=== PATIENT | female | born 1945 | race Caucasian/White ===

== ENCOUNTER → 2016-09-14 | Outpatient (CLI) | payer MEDICARE ==
[2015-03-09 08:35] VITALS: BP 123/68
[~2016-09-14] MED LIST: ASPI81TA2 PO; ATOR20TA58 PO
--- NOTE | 2016-09-14 13:19 | CARD ---
APPROVED REPORT EXAM: Two-dimensional and M-mode echocardiogram with Doppler and color Doppler. Other Information Quality : ExcellentHR: 68bpm Rhythm : NSR INDICATION Edema RISK FACTORS Smoking 2D DIMENSIONS RVDd1.9 (2.9-3.5cm)Left Atrium(2D)3.2 (1.6-4.0cm) IVSd1.0 (0.7-1.1cm)Aortic Root(2D)2.5 (2.0-3.7cm) LVDd5.5 (3.9-5.9cm)LVOT Diameter2.0 (1.8-2.4cm) PWd1.0 (0.7-1.1cm)LVDs3.4 (2.5-4.0cm) FS (%) 36.8 %SV95.6 ml LVEF(%)66.1 (>50%) Aortic Valve AoV Peak Glenn.162.8cm/sAoV VTI38.2cm AO Peak GR.10.6mmHgLVOT Peak Glenn.116.4cm/s AO Mean GR.5mmHgAVA (VMAX)2.25cm2 Mitral Valve MV E Ynvyrsbi468.3cm/sMV E Peak Gr.6mmHg MV DECEL [id number] A Rpqnhulk549.1cm/s MV E Mean Gr.3mmHgE/A Ratio1.1 MV A [id number] Pulmonary Valve PV Peak Uswvtgjt963.4cm/s Pulmonary Vein S1 Rljdukui57.3cm/sD2 Wikeufdr55.8cm/s PVa [id number] LEFT VENTRICLE The left ventricle is normal size. There is normal left ventricular wall thickness. The left ventricu lar systolic function is normal and the ejection fraction is within normal range. The Ejection Fracti on is 60-65%. There is normal LV segmental wall motion. The left ventricular diastolic function and f illing is normal for age. RIGHT VENTRICLE The right ventricle is normal size. There is normal right ventricular wall thickness. The right ventr icular systolic function is normal. ATRIA The left atrium size is normal. The right atrium size is normal. The interatrial septum is intact wit h no evidence for an atrial septal defect or patent foramen ovale as noted on 2-D or Doppler imaging. AORTIC VALVE The aortic valve is mildly thickened. The aortic valve is trileaflet. Doppler and Color Flow revealed no significant aortic regurgitation. There is no significant aortic valvular stenosis. MITRAL VALVE The mitral valve leaflets are thickened. There is no evidence of mitral valve prolapse. There is no m itral valve stenosis. Doppler and Color Flow revealed mild mitral regurgitation. TRICUSPID VALVE The tricuspid valve is normal in structure and function. Doppler and Color Flow revealed trace tricus pid valve regurgitation. PULMONIC VALVE The pulmonary valve is normal in structure and function. Doppler and Color Flow revealed no pulmonic valvular regurgitation. There is no pulmonic valvular stenosis. GREAT VESSELS The aortic root is normal in size. The ascending aorta is normal in size. The pulmonary artery is nor mal. The IVC is normal in size and collapses >50% with inspiration. PERICARDIAL EFFUSION There is no evidence of significant pericardial effusion. Critical Notification Critical Value: No <Conclusion> The left ventricle is normal size. The left ventricular systolic function is normal and the ejection fraction is within normal range. The Ejection Fraction is 60-65%. There is no significant aortic valvular stenosis. Doppler and Color Flow revealed no significant aortic regurgitation. Doppler and Color Flow revealed mild mitral regurgitation. Doppler and Color Flow revealed trace tricuspid valve regurgitation.
== END | disposition home or self-care (01) ==
LOC: ECHO 10:52
PROVIDERS: ATTEND Internal Medicine Cardiovascular Disease
DX: R60.9 Edema, unspecified (principal); I34.0 Nonrheumatic mitral (valve) insufficiency; I37.1 Nonrheumatic pulmonary valve insufficiency
CPT/HCPCS: 93306

== ENCOUNTER → 2016-09-14 | Outpatient (CLI) | payer MEDICARE ==
[2015-03-09 08:35] VITALS: BP 123/68
--- NOTE | 2016-09-17 09:20 | RAD ---
APPROVED REPORT Patient Location : OUT-PATIENT Indications Lower Extremity Edema : Past History Compression Stockings : Yes INTERMITTENT SWELLING OF ANKLES. C/O BILAT FOOT PAIN THAT HAS IMPROVED WITH NEW INSERTS FOR HER SHOES AND WEARING COMPRESSION STOCKINGS. Deep System Deep Venous Thrombosis present : No Deep Venous Reflux present : No Perforators Thigh Perforators Calf Perforators Right: cm up from medial heel 17cm back from the anterior border of tibia 10 diameter 1.6mm. Findings Bilateral venous reflux study was performed. Based on spectral tracings and compressibility of the b ilateral GSV/LSV are negative for reflux and thrombus. The bilateral saphenofemoral junctions are neg ative for thrombus on limited imaging. Critical Notification Critical Value: No <Conclusion> No evidence of reflux in the bilateral greater and lesser saphenous veins.
== END | disposition home or self-care (01) ==
LOC: US 12:13
PROVIDERS: ATTEND Internal Medicine Cardiovascular Disease
DX: R60.0 Localized edema (principal); M79.672 Pain in left foot; M79.671 Pain in right foot
CPT/HCPCS: 93970